=== PATIENT | male | born 1980 | race African-American/Black ===

== ENCOUNTER 2018-01-05 12:22 | Emergency (ER) | payer SELFPAY ==
[~2018-01-05] VITALS: Ht 175.3 cm; Wt 79.4 kg
[2018-01-05 12:27] VITALS: BP 119/79
--- NOTE | 2018-01-05 12:40 | NUR ---
PATIENT PRESENTS TO ED WITH C/O INTERMITTENT DIZZINESS WITH NAUSEA---DENIES RECENT INJURY/TRAUMA---AMBULATORY WITH STEADY GAIT-FULL CLEAR SPEECH, NO FACIAL ASYMMETRY . PT STATES . SKIN IS PINK/WARM/DRY; AAOX4 WITH EVEN AND STEADY GAIT; LUNGS CLEAR BL; HR EVEN AND REGULAR; PT DENIES ANY FEVER, CP, SOB, OR COUGH AT THIS TIME; PATIENT STATES PAIN OF 0/10 AT THIS TIME; VSS; PATIENT POSITIONED FOR COMFORT; HOB ELEVATED; BEDRAILS UP X2; BED DOWN. ER MD MADE AWARE OF PT STATUS.
[2018-01-05] MEDS ORDERED: MECLIZINE 25 MG TAB PO ONE (13:00)
[2018-01-05] MEDS ORDERED: NACL 0.9% 1,000 ML IV ONE (13:00)
--- NOTE | 2018-01-05 13:00 | NUR ---
ENCOURAGED TO PROVIDE URINE SAMPLE
[2018-01-05 13:48] LABS: BASOPHILS % (AUTO) 0.4 % (0.0-2.0); EOSINOPHILS # (AUTO) 0.1 K/uL (0-0.4); EOSINOPHILS % (AUTO) 1.1 % (0.0-4.0); HEMATOCRIT 41.1 % (36-52); HEMOGLOBIN 13.3 g/dL (12.0-18.0); LYMPHOCYTES # (AUTO) 2.3 K/uL (2.0-11.5); LYMPHOCYTES % (AUTO) 46.3 % (20.5-51.1); MEAN CORPUSCULAR HEMOGLOBIN 29 pg (27-31); MEAN CORPUSCULAR HGB CONC 32 g/dL (33-37); MEAN CORPUSCULAR VOLUME 90.9 fL (80-94); MONOCYTES # (AUTO) 0.4 K/uL (0.8-1.0); MONOCYTES % (AUTO) 8.5 % (1.7-9.3); NEUTROPHILS # (AUTO) 2.2 K/uL (1.8-7.7); NEUTROPHILS % (AUTO) 43.7 % (42.2-75.2); PLATELET COUNT (AUTO) 179 K/uL (140-450); RED BLOOD CELL COUNT(AUTO) 4.53 MIL/uL (4.20-6.10); RED CELL DISTRIBUTION WIDTH 14.6 % (11.6-13.7)
[2018-01-05 14:33] LABS: ANION GAP 10.3 (8-16); CARBON DIOXIDE 28.5 mmol/L (21-32); CREATININE 1.1 mg/dL (0.7-1.3); POTASSIUM 3.8 mmol/L (3.5-5.1)
[2018-01-05 14:39] LABS: ALBUMIN 3.9 g/dL (3.4-5.0); TOTAL BILIRUBIN 0.4 mg/dL (0.0-1.0)
--- NOTE | 2018-01-05 14:50 | NUR ---
AMBULATORY TO AND FROM RESTROOM WITH STEADY GAIT----CONTINUES TO WAIT FOR DISPO. CONTINUES TO ADMIT HE STILL MILDLY DIZZY DENIES NAUSEA AT THIS TIME WILL CONTINUE TO OBSERVE FOR ANY CHANGES
[2018-01-05 14:51] LABS: APPEARANCE,URINE CLEAR (CLEAR); BILIRUBIN,URINE NEGATIVE (NEGATIVE); BLOOD, URINE NEGATIVE (NEGATIVE); LEUKOCYTE ESTERASE ,URINE NEGATIVE (NEGATIVE); NITRITE, URINE NEGATIVE (NEGATIVE); PH,URINE 6.5 (5.0-9.0); UGLUCOSE NEGATIVE (NEGATIVE)
[2018-01-05 14:52] LABS: COLOR,URINE STRAW (YELLOW)
[2018-01-05 15:12] LABS: BARBITURATE, URINE NEG. ng/ml (NEG <=200); BENZODIAZEPINE, URINE NEG. ng/mL (NEG <=200); CANNABINOID, URINE POS. ng/mL (NEG <=50); COCAINE, URINE NEG. ng/mL (NEG <=300); OPIATE, URINE POS. ng/mL (NEG <=2000); PHENCYCLIDINE SCREEN,URINE NEG. ng/mL (NEG <=25)
[2018-01-05 16:05] VITALS: BP 129/69
--- NOTE | 2018-01-05 16:05 | NUR ---
Patient discharged with v/s stable. Written and verbal after care instructions given and explained. Patient verbalized understanding. Ambulatory with steady gait. All questions addressed prior to discharge. Advised to follow up with PMD.
== END 2018-01-05 16:05 | disposition home or self-care (01) ==
LOC: MED 12:22
DX: F11.90 Opioid use, unspecified, uncomplicated (principal); F12.90 Cannabis use, unspecified, uncomplicated; R53.1 Weakness
CPT/HCPCS: 36415; 80053; 80305; 81003; 85025; 93005; 96360; 99285; J7030; J8597